=== PATIENT | male | born 1945 | race Hispanic/Latino ===

== ENCOUNTER 2020-03-07 12:33 | Outpatient (CLI) | payer MEDICARE ==
--- NOTE | 2020-03-07 15:20 | MRI ---
MRI LUMBAR SPINE NONCONTRAST: DATE: 03/07/2020 HISTORY: 74-year-old male with lumbar radiculopathy COMPARISON: 04/15/2020 FINDINGS: For the purposes of this report, it will be assumed that there are 5 lumbar-type vertebrae. Vertebral body heights are maintained. 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 There is a greater degree of magnetic susceptibility artifact from metallic hardware on the current M RI scan which was performed on the 3 [employer]onna magnet, than on the prior 1.5 [employer] magnet. That is at least part of the explanation for the low image resolution on the current study. T12-L1:Normal L1-2:Mild to moderate disc space narrowing. Diffuse disc bulge. Conus medullaris terminates here. Mil d central spinal canal stenosis. Posterior epidural fat pad. Moderate thecal sac stenosis. Mild bilateral neural foraminal stenosis. No significant interval change. L2-3:There are bilateral L3 pedicle screws, new since the previous MRI. A new finding of moderate dis c space narrowing. The previously demonstrated diffuse disc bulge has become significantly larger, resulting in worsening of the now very severe central spinal canal stenosis. Mild to moderate right n eural foraminal stenosis. Moderate to severe left neural foraminal stenosis, unchanged. L3-4:Again noted are the bilateral L4 pedicle screws. There are new interbody cage prostheses in the disc space. High-grade bilateral degenerative facet hypertrophy. Right paramedian hemilaminotomy defect. Moderate to severe central spinal canal stenosis. Difficult to evaluate degree of neural fora jenny stenosis due to the magnetic susceptibility artifact. L4-5:The bilateral L5 pedicle screws have been removed. Tracts are noted in the bone. Mild to moderat e central spinal canal stenosis. Anterior epidural fat pad. Moderate thecal sac stenosis. No high-grade neural foraminal stenosis. No significant interval change. Interbody cage material again n oted within the moderately narrowed disc space. L5-S1:Mild to moderate disc space narrowing. Prominent diffuse disc bulge. Mild to moderate bilateral neural foraminal stenosis. Small focal central disc herniation. Moderate central spinal canal stenosis. No major interval change. IMPRESSION: 1) lumbar spondylosis. 2) status post posterior lumbar interbody fusion at L3-4 and L4-5 with interbody cages and right late ral pedicle screws. 3) the bilateral L5 pedicles and have been removed since the prior MRI. 4) the bilateral L3 pedicle screws are new since the prior MRI. 5.) Very severe central spinal canal stenosis at L2-3. 6) other levels of central spinal canal stenosis and neural foraminal stenosis, due to degenerative c hanges exacerbating a developmentally small caliber spinal canal.
== END 2020-03-07 12:34 | disposition home or self-care (01) ==
LOC: TBSIIMAG 12:33
PROVIDERS: ATTEND Orthopaedic Surgery
DX: M47.26 Other spondylosis with radiculopathy, lumbar region (principal); M54.5 Low back pain; Z98.1 Arthrodesis status; M48.061 Spinal stenosis, lumbar region without neurogenic claudication
CPT/HCPCS: 72148

== ENCOUNTER 2020-12-23 08:30 | Outpatient (CLI) | payer MEDICARE ==
[2020-12-23 10:16] LABS: Hemoglobin 11.7 g/dL (13.5-17.5); Mean Corpuscular HGB CONC 32.4 g/dL (32.0-36.0); Mean Corpuscular Hemoglobin 27.7 pg (27.0-33.0); Mean Corpuscular Volume 85.3 fl (81.2-95.1); Mean Platelet Volume 9.8 fl (7.4-10.4); Platelet Count 157 10x3/uL (150-450); RBC Distribution Width 15.4 % (11.5-14.5); Red Blood Cell (RBC) Count 4.23 10x6/uL (4.32-5.72); White Blood Cell (WBC) Count 6.4 10x3/uL (3.5-10.5)
[2020-12-23 10:50] LABS: Anion Gap 14 mmol/L (10-20); BUN (Urea Nitrogen) 26 mg/dL (8.4-25.7); Calc. Creatinine Clearance 0 mL/min (70-130); Calcium 9.6 mg/dL (7.8-10.44); Carbon Dioxide 21 mmol/L (23-31); Chloride 110 mmol/L (98-107); Glucose 142 mg/dL (83-110); Potassium 4.2 mmol/L (3.5-5.1); Sodium 141 mmol/L (136-145)
== END 2020-12-23 08:31 | disposition home or self-care (01) ==
LOC: LABBT 08:30
PROVIDERS: ATTEND Neurological Surgery
DX: Z01.818 Encounter for other preprocedural examination (principal); M48.061 Spinal stenosis, lumbar region without neurogenic claudication
CPT/HCPCS: 80048; 85027; 93005; 93010